=== PATIENT | male | born 1970 | race Caucasian/White ===

== ENCOUNTER → 2024-06-20 09:29 | Outpatient (REF) | payer OTHER, SELFPAY ==
[2024-06-20 17:15] LABS: Mumps Virus IgG Negative; Rubeola (Measles) IgG Positive; Varicella Zoster IgG (VZV) Positive
[2024-06-20 20:25] LABS: Rubella Negative
[2024-06-22 13:23] LABS: Quantiferon Mitogen minus NIL 9.98 IU/mL; Quantiferon NIL 0.02 IU/mL; Quantiferon Plus TB2 minus NIL 0.03 IU/mL (<=0.34); Quantiferon TB Gold Plus Negative (Negative)
== END ==
LOC: OHS 09:29
PROVIDERS: ATTENDING PHYSICIAN Nurse Practitioner Family
DX: Z23 Encounter for immunization (principal)
CPT/HCPCS: 86480; 86735; 86762; 86765; 86787